=== PATIENT | female | born 1935 | race Caucasian/White ===

== ENCOUNTER 2016-08-16 10:54 | Inpatient (IN) | payer BC, MEDICARE ==
[~2016-08-16] VITALS: Ht 162.6 cm; Wt 59.0 kg
[2016-08-16 11:56] LABS: Basophils # (auto) 0 uL; Basophils % (auto) 0.5 % (0.0-2.0); Eosinophils # (auto) 0.1 uL; Eosinophils % (auto) 2.1 % (0.0-7.0); Hemoglobin 13.4 g/dL (12.2-16.2); Lymphocytes # (auto) 1.3 uL; Lymphocytes % (auto) 28.4 % (10.0-50.0); Mean Corpuscular Hemoglobin 30.7 pg (28.0-32.0); Mean Corpuscular Hgb Conc. 33.5 g/dL (32.0-36.0); Mean Corpuscular Volume 91.6 fL (80.0-100.0); Mean Platelet Volume 7.4 fL (7.4-10.4); Monocytes # (auto) 0.3 uL; Monocytes % (auto) 6.5 % (0.0-12.0); Neutrophils # (auto) 2.9 uL; Neutrophils % (auto) 62.5 % (37.0-80.0); Platelet Count (auto) 355 10^3/uL (140-450); Red Cell Distribution Width 14.1 % (11.6-16.0); White Blood Cell 4.7 10^3/uL (4.4-10.8)
[2016-08-16] MEDS ORDERED: ceFAZolin 1GM/50ML D5W 50 ML IV ONE (11:58)
[2016-08-16 12:11] LABS: INR 0.98 (0.9-1.15); Prothrombin Time 10.6 sec (9.37-12.3)
[2016-08-16 12:16] LABS: BUN/Creatinine Ratio 11.6; Calcium 9.4 mg/dL (8.5-10.1); Potassium 3.5 mmol/L (3.5-5.1)
[2016-08-16] MEDS ORDERED: MEPERIDINE HCL (50 MG/ML) 1 ML VIAL ONE (13:09)
[2016-08-16] MEDS ORDERED: SODIUM CHLORIDE LOCK 20 ML ONE (13:09)
[2016-08-16] MEDS ORDERED: MIDAZOLAM HCL 1MG/1ML-2 ML VIAL ONE (13:09)
[2016-08-16] MEDS ORDERED: fentaNYL CITRATE 100 MCG/2 ML VL ONE (13:09)
[2016-08-16] MEDS ORDERED: PROPOFOL 10 MG/ML 20 ML IV ONE ×2 (13:09→15:40)
[2016-08-16] MEDS ORDERED: ROCURONIUM 10MG/ML 10ML VIAL IV ONE (13:09)
[2016-08-16] MEDS ORDERED: BUPIVACAINE 0.25% INJ 50ML VIAL IJ ONE (14:25)
[2016-08-16] MEDS ORDERED: KETOROLAC TROMETH 30 MG/ML 1ML VIAL ONE (15:40)
[2016-08-16] MEDS ORDERED: MORPHINE SULF INJ 2 MG/ML SYRINGE 1ML IV PRN ×2 (16:00→16:30)
[2016-08-16] MEDS ORDERED: ONDANSETRON HCL 4 MG/2 ML VIAL IV ONE (16:00)
[2016-08-16] MEDS ORDERED: MIDAZOLAM HCL 1MG/1ML-2 ML VIAL IV PRN (16:00)
[2016-08-16] MEDS ORDERED: ePHEDrine SULFATE 50 MG/ML AMP IV PRN (16:00)
[2016-08-16] MEDS ORDERED: LABETALOL HCL 5 MG/ML 4ML SYRINGE IV PRN (16:00)
[2016-08-16] MEDS ORDERED: KETOROLAC TROMETH 30 MG/ML 1ML VIAL IV ONE (16:00)
[2016-08-16] MEDS ORDERED: HYDROmorphone HCL 2 MG/ML VL IV PRN (16:00)
[2016-08-16] MEDS ORDERED: BUPIVACAINE 0.25% INJ 50ML VIAL ONE (16:25)
[2016-08-16] MEDS ORDERED: NITROGLYCERIN 0.4 MG SL TAB SL PRN (16:30)
[2016-08-16] MEDS ORDERED: ACETAMINOPHEN 325 MG TAB PO SCH (18:00)
[2016-08-16] MEDS ORDERED: ACETAMINOPHEN 325 MG TAB PO PRN (18:08)
[2016-08-16] MEDS: ceFAZolin 1GM/50ML D5W 50 ML IV SCH ×2 (18:46→23:26)
[2016-08-16] MEDS: traMADol HCL 50 MG TAB PO PRN ×2 (18:46→21:57)
[2016-08-16] MEDS ORDERED: OME20T PO (18:58)
[2016-08-16 21:53] VITALS: BP 119/58
[2016-08-17] MEDS: traMADol HCL 50 MG TAB PO PRN ×5 (03:11→19:12)
[2016-08-17 05:00] VITALS: BP 141/70
[2016-08-17] MEDS: ceFAZolin 1GM/50ML D5W 50 ML IV SCH ×3 (05:25→18:00)
[2016-08-17 09:00] VITALS: BP 149/28
[2016-08-17] MEDS ORDERED: IBUPROFEN 800 MG TAB PO PRN (11:00)
[2016-08-17] MEDS ORDERED: MORPHINE SULF INJ 2 MG/ML SYRINGE 1ML IV PRN (11:00)
[2016-08-17] MEDS ORDERED: PANTOPRAZOLE 40 MG TAB PO ONE (11:00)
[2016-08-17 13:00] VITALS: BP 136/66
[2016-08-17 16:26] VITALS: BP 134/74
[2016-08-17 21:30] VITALS: BP 137/67
[2016-08-18] MEDS: ceFAZolin 1GM/50ML D5W 50 ML IV SCH ×2 (00:35→05:54)
[2016-08-18] MEDS ORDERED: DOCUSATE CALCIUM 240 MG CAP PO PRN (01:00)
[2016-08-18] MEDS ORDERED: OMEPRAZOLE 20MG/10ML ORAL SUSP PO ONE (01:00)
[2016-08-18] MEDS: traMADol HCL 50 MG TAB PO PRN ×3 (03:08→11:38)
[2016-08-18 05:00] VITALS: BP 133/68
[2016-08-18 07:09] LABS: Hematocrit 33.6 % (36.0-46.0); Hemoglobin 11.3 g/dL (12.2-16.2)
[2016-08-18 08:38] VITALS: BP_SYST 112; BP_SYST 140; BP_DIAS 60; BP_DIAS 66
[2016-08-18] MEDS ORDERED: PANTOPRAZOLE 40 MG TAB PO SCH (10:00)
[2016-08-18 12:31] VITALS: BP 140/66
[2016-08-18 13:24] VITALS: BP 139/75
== END 2016-08-18 13:10 | disposition home or self-care (01) | DRG 483 ==
LOC: SUR 10:54 → TELE-EAST 10:55 → EAST 08-17 11:38
PROVIDERS: ADMIT Orthopaedic Surgery; ATTEND Internal Medicine
PROC: 0RRK0J7 Replacement of Left Shoulder Joint with Synthetic Substitute, Glenoid Surface, Open Approach (ICD-10-PCS; 2016-08-16)
PROC: 0LS40ZZ Reposition Left Upper Arm Tendon, Open Approach (ICD-10-PCS; 2016-08-16)
PROC: 0LQ20ZZ Repair Left Shoulder Tendon, Open Approach (ICD-10-PCS; principal; 2016-08-16 13:56)
DX: S42.252A Displaced fracture of greater tuberosity of left humerus, initial encounter for closed fracture (principal); K21.9 Gastro-esophageal reflux disease without esophagitis; M75.20 Bicipital tendinitis, unspecified shoulder; W19.XXXA Unspecified fall, initial encounter; M75.100 Unspecified rotator cuff tear or rupture of unspecified shoulder, not specified as traumatic; Y93.89 Activity, other specified; Y92.89 Other specified places as the place of occurrence of the external cause; Y99.8 Other external cause status
CPT/HCPCS: 36415; 71010; 73020; 80048; 85014; 85018; 85025; 85610; 85730; 86850; 86900; 86901; 93005; J0690; J1885; J2250; J2704; J3490